=== PATIENT | female | born 1930 | race Caucasian/White ===

== ENCOUNTER 2016-07-15 23:54 | Inpatient (IN) | payer MEDICARE, OTHER ==
[~2016-07-15] VITALS: Ht 175.3 cm; Wt 68.9 kg
[2016-07-16] MEDS ORDERED: ACETAMINOPHEN325 MG PO (00:29)
[2016-07-16] MEDS ORDERED: ATIVAN0.5 MG PO (00:32)
[2016-07-16] MEDS ORDERED: FEMARA2.5 MG PO (00:33)
[2016-07-16] MEDS ORDERED: FUROSEMIDE20 MG PO (00:34)
[2016-07-16] MEDS ORDERED: LEVAQUIN500 MG PO (00:35)
[2016-07-16] MEDS ORDERED: ALDACTONE25 MG PO (00:36)
[2016-07-16] MEDS ORDERED: TRAZODONE HCL50 MG PO (00:38)
[2016-07-16] MEDS ORDERED: PROBIOTIC1 EAC1 PO (00:39)
[2016-07-16] MEDS ORDERED: K-DUR20 MEQ PO (00:41)
[2016-07-16] MEDS ORDERED: PROTONIX FOR OR40 MG PT (00:43)
[2016-07-16] MEDS ORDERED: METOPROLOL TART50 MG PO (00:44)
[2016-07-16] MEDS ORDERED: HYDROCODON-ACE1 EAC7 PO (00:45)
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
[2016-07-16 07:00] VITALS: BP 100/55
[2016-07-16 07:07] LABS: BASOPHILS 1.1 % (0-2); EOSINOPHILS 6.9 % (0-7); HEMATOCRIT 31.3 % (36.0-48.0); HEMOGLOBIN 10.1 g/dL (12-16); IMMATURE GRANULOCYTES 6.9 % (0-5); MCH 29.9 pg (26.0-34.0); MCHC 32.3 g/dL (31.0-37.0); MCV 92.6 fL (80.0-100.0); MEAN PLATELET VOLUME 9.9 fL (7.4-10.4); MONOCYTES 15.2 % (2-11); NEUTROPHILS 41.9 % (40-80); RBC 3.38 10x6/uL (4.00-5.40); RDW 15.4 % (11.5-14.5); WBC 5.3 10x3/uL (4.8-10.8)
[2016-07-16 07:09] LABS: PLATELET COUNT 296 10x3/uL (130-400)
[2016-07-16 07:12] LABS: ALBUMIN 2.3 g/dL (3.4-5.0); ANION GAP 10.2 mmol/L (8-16); BILIRUBIN - TOTAL 0.4 mg/dL (0.2-1.3); CALCIUM 8.9 mg/dL (8.5-10.1); CARBON DIOXIDE 29.7 mmol/L (21.0-32.0); CHOL - HDL RATIO 3.7 ratio (2.3-4.1); CREATININE - SERUM 1.2 mg/dL (0.6-1.3); LDL-HDL RATIO 2.1 ratio (1.5-3.5); POTASSIUM - SERUM 3.9 mmol/L (3.5-5.1); PROTEIN - SERUM 6.3 g/dL (6.4-8.2); THYROID STIMULATING HORMONE 3.85 uIU/mL (0.36-3.74)
--- NOTE | 2016-07-16 07:45 | NUR ---
B.) Alert and oriented to name and able to states , has no insight to place or reason for hospitalization. Incontinent of small amount of urine cleansed up then assisted to bathroom with assist time 2 in w/c, urine sample obtained. I.) Administer medications and monitor compliance. Redirected and reorient, monitor for any aggression and redirect as need. Encourage group participation. Monitor safety. R.) No am medications ordered, calm and cooperative with assessment, no evidence of reorientation, difficult to redirect to not get up out of chair unassisted. Chair alarm in place. No aggression. Safety maintained. P.) Continue plan of care.
[2016-07-16 09:27] LABS: APPEARANCE HAZY (CLEAR); BILIRUBIN NEGATIVE (NEGATIVE); COLOR YELLOW (YELLOW); GLUCOSE NEGATIVE (NEGATIVE); KETONE NEGATIVE (NEGATIVE); LEUKOCYTE ESTERASE 2+ (NEGATIVE); NITRITE NEGATIVE (NEGATIVE); PROTEIN NEGATIVE (NEGATIVE); SPECIFIC GRAVITY 1.005 (1.005-1.020); UROBILINOGEN NORMAL (NORMAL)
[2016-07-16 09:28] LABS: BACTERIA MODERATE /hpf (NONE SEEN); EPITHELIAL CELLS 0-5 /hpf (0-5); MUCUS <1+ /lpf (NONE SEEN); WHITE CELLS - URINE 25-50 /hpf (0-5)
--- NOTE | 2016-07-16 09:45 | NUR ---
Contacted patient son Roc, obtained privacy code of " suzanne", informed of vistiation days and time. Verbalized understanding.
[2016-07-16 10:43] LABS: HEMOGLOBIN A1C 5.8 % (4.8-6.0)
[2016-07-16 10:58] VITALS: BP 124/76; BMI 22.5
[2016-07-16 16:19] VITALS: Ht 175.3 cm; Wt 68.9 kg
--- NOTE | 2016-07-16 18:12 | NUR ---
Patient with anxiety AEB, scanning vision, attempting to get in and out of chair, yelling out. Prn po Ativan given.
--- NOTE | 2016-07-16 19:26 | NUR ---
RECEIVED IN DAYROOM SITTING IN DAYROOM AT TABLE WITH STAFF. CONFUSED. RESTLESS. ATTEMPTS TO STAND WITHOUT ASSIST. NO SIGNS OF AGGRESSION. NOT DISROBING. REDIRECT AND REORIENT NEEDED. CONTINUES TO BE RESTLESS. CONTINUE PLAN OF CARE
--- NOTE | 2016-07-16 19:56 | NUR ---
REFUSED PM VITALS SIGNS. BECOMING MORE RESTLESS.
[2016-07-16 20:49] VITALS: BP 134/57
--- NOTE | 2016-07-16 21:00 | NUR ---
INCREASING ANXIETY. CONFUSED. ATIVAN 0.5 MG PO GIVEN.
[2016-07-17 06:14] LABS: RAPID PLASMA REAGIN Non Reactive (Non Reactive)
[2016-07-17 08:20] LABS: VITAMIN D 25 HYDROXY 19.6 ng/mL (30.0-100.0)
[2016-07-17 08:58] VITALS: BP 139/72
[2016-07-17 09:17] LABS: FOLATE (FOLIC ACID) - SERUM 15.7 ng/mL (>3.0)
--- NOTE | 2016-07-17 13:26 | NUR ---
B.) Received this am, alert and oriented to name only, calm and cooperative with assessment. I.) Administer prescribed medications and monitor compliance. Redirect and reorient as need. Encourage group participation. Monitor safety. R.) Compliant with medications. Difficulty with redirections. No evidence of reorientation, unable to process and retain information. Safety maintained. P.) Continue plan of care.
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
--- NOTE | 2016-07-17 15:00 | NUR ---
per nurse Tania, patient sitting in soy chair crying. No distress reported. Chair alarm in place.
--- NOTE | 2016-07-17 19:20 | NUR ---
RECEIVEDE IN DAYROOM. SITTING AT TABLE WITH STAFF AND PEERS. CALM AND COOPERATIVE WITH CARE AND ASSESSMENT. NO SIGNS OF AGGRESSION. REDIRECT AND REORIENT NEEDED. RESTING IN RECLINER EYES OPEN AT THIS TIME. CONTINUE PLAN OF CARE
[2016-07-17 19:34] VITALS: BP 125/59
--- NOTE | 2016-07-17 23:12 | NUR ---
RESTLESS. CLIMBING OUT OF BED. NOTED ANXIETY. UNABLE TO REORIENT. ATIVAN 0.5 MG PO GIVEN FOR ANXIETY
[2016-07-18 07:00] VITALS: BP 115/60
--- NOTE | 2016-07-18 10:55 | NUR ---
ORIENTED TO PERSON ONLY. NO AGGRESSION NOTED. PT DENIES SI OR DEPRESSION. PT CONTINUES TO MAKE RANDOM DELUSIONAL STATEMENTS. REORIENTED NEEDED. MEDICATIONS ADMINISTERED ORDERED. MED COMPLIANT. ARNOLDO ALARM IN PLACE AND AUDIBLE. FALL PRECAUTIONS MAINTAINED. WILL CONTINUE TO MONITOR AND CONTINUE WITH PLAN OF CARE.
--- NOTE | 2016-07-18 18:42 | NUR ---
PT STOOD UP FROM W/C BEFORE STAFF COULD REACH HER AND LANDED ON BOTTOM. NO INJURY NOTED DURING ASSESSMENT. DENIES PAIN OR DISCOMFORT. DOCTOR AND FAMILY NOTIFIED. ALARMS SOUNDED ON BOTH BREAKAWAY BELT AND ARNOLDO PAD.
[2016-07-18 20:58] VITALS: BP 144/77
--- NOTE | 2016-07-18 21:15 | NUR ---
B) Recieved patient in the nurses station, alert and oriented to self, very confused, restless at times, I) Administered perscribed medications crushed in orange serbert, monitored for falls and safety, neurochecks within normal limits, R) Medication compliant after several attempts, P) Continue plan of care, continue to monitor.
[2016-07-19 09:47] VITALS: BP 134/74
--- NOTE | 2016-07-19 10:17 | NUR ---
B) PATIENT IS AWAKE AND ALERT, SHE IS CONFUSED, BUT SHE IS PLEASANT AND TALKATIVE. SHE HAS NOT SHOWN AGGRESSION THIS AM. SHE NEEDS ASSIST TO TRANSFER BY STAFF. I) PROVIDE PRESCRIBED MEDS, REDIRECT NEEDED. R) PROVIDE PRESCRIBED MEDS, GIVE PROMPTS TO ASSIST WITH REMEMBERING. P) CONTINUE PLAN OD CARE.
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
--- NOTE | 2016-07-19 14:43 | PN ---
PATIENT:MIKA BONNER MEDICAL RECORD: [id number] LOCATION:[facility] ADMISSION DATE: 07/15/16 PROGRESS NOTE DATE OF SERVICE: 07/17/2016 SUBJECTIVE: The patient's case was discussed with staff. She has no new complaint. OBJECTIVE: The patient denies intent to harm herself or others. She is extremely confused and impaired cognitively. ASSESSMENT: No change in diagnoses. PLAN: Current medicines have been reviewed and will be maintained. Long-term prognosis is guarded. TRANSINT:[id number] Voice Confirmation ID: [id number] DOCUMENT ID: [id number] SAHIL MCKEON MD at 1443 CC: [id number] DICTATION DATE: 07/17/16 1407 COLLEGE PHYSICS INSTRUCTOR: 07/17/16 1537 ADM IN [place] [address] [place] [address]
--- NOTE | 2016-07-19 14:43 | PN ---
PATIENT:MIKA BONNER MEDICAL RECORD: [id number] LOCATION:[facility] ADMISSION DATE: 07/15/16 PROGRESS NOTE DATE OF SERVICE: 07/18/2016 Psychiatric Progress Note SUBJECTIVE: The patient's case was discussed with staff. She has no new complaint. OBJECTIVE: The patient is in good behavioral control with very poor insight about her situation. She is quite confused at times, but unwilling to acknowledge that. She did require a p.r.n. medication last night because of agitated behavior. ASSESSMENT: Senile dementia of the Alzheimer type with behavioral disturbances. PLAN: The patient will be given Trilafon at a dose of 2 mg at bedtime to assist with thought disorganization. On at least a temporary basis, I am also going to give her Xanax 0.5 mg at bedtime to assist with sleep consolidation. I will also start her on Namenda at a dose of 2.5 mg twice daily for cognitive improvement. In addition to this, her trazodone will be discontinued since it has not been effective up to this point. Her long-term prognosis is guarded. If I can achieve reasonable certainty that she is not acutely aggressive and she is sleeping a little better and more behaviorally unmanageable, I will consider discharging her. TRANSINT:[id number] Voice Confirmation ID: [id number] DOCUMENT ID: [id number] SAHIL MCKEON MD at 1443 CC: [id number] DICTATION DATE: 07/18/16 1328 RIGGING LOFT MECHANIC: 07/18/16 2118 ADM IN [place] [address] [place] [address]
--- NOTE | 2016-07-19 15:25 | NUR ---
PATIENT IS NOT TEARFUL RIGHT NOW, BUT SHE IS CONFUSED AND SHE IS STILL TALKING ABOUT LEAVING.
--- NOTE | 2016-07-19 16:00 | NUR ---
PATIENT'S SPOUSE CAME TO VISIT AND THEN PATIENT SAID SHE HAD TO GO TO THE BATHROOM, BIACA TOOK HER TO THE BATHROOM AND PATIENT SAID "I DON'T NEED TO GO, I JUST WANTED HIM TO LEAVE". PATIENT IS LESS ANXIOUS. SHE IS NOT TRYING TO LEAVE AT THE MOMENT.
[2016-07-19 19:54] VITALS: BP 132/63
--- NOTE | 2016-07-20 02:20 | NUR ---
B) Recieved patient in the day room, alert and oriented to self, calm and cooperatice until transfer to her bed the combative and anxious, I) Administered perscribed medications crushed in orange serbert, PRN Ativan 0.5 mg IM and Haldol 2 mg IM given for anxiety at 20:56, R) Medication compliant, transfered to soy chair and placed in hallway for monitoring, resting now quietly asleep, P) Continue plan of care.
--- NOTE | 2016-07-20 07:21 | NUR ---
B) PATIENT LAYING IN THE HALLWAY IN A GINA CHAIR, SHE IS CONFUSED, SHE DOES NOT KNOW HER NAME OR WHERE SHE IS LOCATED, SHE IS TALKING NONSENSICAL AND SHE KEEPS KICKING OFF HER BLANKET. PATIENT IS STILL SLEEPY. I) PROVIDE PRESCRIBED MEDS. R) PATIENT IS COMPLIANT WITH MEDS. P) CONTINUE PLAN OF CARE.
--- NOTE | 2016-07-20 07:56 | NUR ---
PATIENT TAKEN IN FOR SHOWER. WASHED HER HAIR, CLEANSED HER BODY AND CHANGED HER INTO CLEAN CLOTHES. PATIENT IS STILL SLEEPY.
[2016-07-20 10:15] VITALS: BP 102/60
--- NOTE | 2016-07-20 12:56 | NUR ---
Nutrition Follow Up: Chart reviewed. Pt is eating 87% meal avg on a regular mechanical soft diet. +BM 07/19/16. Labs reviewed. Meds noted including Lasix, Vit D. Pt with good po intake at this time. Rec continue current diet. RD following.
--- NOTE | 2016-07-20 18:35 | NUR ---
PATIENT FELL IN DAY ROOM. PATIENT SAT UP, CHAIR FLIPPED PATIENT UP AND SHE FELL TO THE FLOOR. SHE HIT THE LEFT BACK SIDE OF HER HEAD. THERE IS A GOOSE EGG, NO LACERATION. VS T 98, BP 142/81, P 84, R 18, SPO2 100%, NEURO CHECKS STARTED, EYES ARE EQUAL. PATIENT WAS CONFUSED AND LETHARGIC BEFORE HER FALL AND REMAINS UNCHANGED AFTER FALL.
--- NOTE | 2016-07-20 18:40 | NUR ---
CALLED PATIENTS FAMILY ANGEL BONNER TO LET HIM KNOW SHE FELL, THERE IS A GOOSE EGG ON THE BACK OF LEFT SIDE OF HER HEAD. PAGED DR. CANDELARIO TO LET HIM KNOW ABOUT THE FALL.
[2016-07-20 19:30] VITALS: BP 142/81
--- NOTE | 2016-07-21 03:47 | NUR ---
Patient in dayroom in recliner. Oriented to self only. Scab on forehead, patient is trying to scratch off. Patient redirected, reoriented. Patient compliant with medication, non-combative, and non aggressive. continue to monitor
[2016-07-21 11:23] VITALS: BP 124/61
--- NOTE | 2016-07-21 16:55 | NUR ---
ORIENTED TO SELF ONLY,VERY CONFUSED.ANSWERS TO QUESTIONS HAVE NOTHING TO DO WITH QUESTION ASKED.COMPLIANT WITH MEDS.NO COMBATIVE BEHAVIOR OBSERVED BUT WAS OBSERVED CRYING AND ANGERLY TALKING ABOUT HER DADDY AND SHE WANTED TO GO WITH HIM.HALDOL 2MG IM TO RT HIP GIVEN PER ORDERS.WILL CONTINUE WITH PLAN OF CARE,MONITOR FOR CHANGES AND SAFETY.
[2016-07-21 19:30] VITALS: BP 125/64
--- NOTE | 2016-07-21 22:53 | NUR ---
Patient in dayroom in recliner, watching t.v. She is oriented to name only. Patient is compliant with medication, non-combative, pleasant and smiling. Bailey alarm activated, slip socks on. Continue to monitor, continue plan of care.
[2016-07-22 09:27] VITALS: BP 100/57
--- NOTE | 2016-07-22 14:43 | NUR ---
ORIENTED TO SELF ONLY.ANSWERS HAVE NOTHING TO DO WITH QUESTIONS ASKD.NO AGGRESSION OBSERVED.WILL CONTINUE WITH PLAN OF CARE.MONITOR FOR CHANGES AND SAFETY.
--- NOTE | 2016-07-22 18:53 | PN ---
PATIENT:MIKA BONNER MEDICAL RECORD: [id number] LOCATION:[facility] ADMISSION DATE: 07/15/16 PROGRESS NOTE DATE OF SERVICE: 07/22/2016 SUBJECTIVE: No new verbal complaint. OBJECTIVE: The patient has not been combative, but yesterday afternoon did become agitated and labile and required p.r.n. Subsequent to this, she calmed considerably and did sleep well last night. On exam, mood is anxious, affect is shallow. Speech is tangential. Content of thought is negative for suicidal ideation. The patient continues to have delusional ideation about her parents. Sensorium shows no change. ASSESSMENT: No change in diagnosis. PLAN: 1. Maintain current medications. 2. Continue supportive therapy. TRANSINT:[id number] Voice Confirmation ID: [id number] DOCUMENT ID: [id number] JT RASHID III, MD at 1853 CC: [id number] DICTATION DATE: 07/22/16 0807 ROLLER INSPECTOR: 07/22/16 1059 ADM IN [place] [address] [place] [address]
--- NOTE | 2016-07-22 18:53 | PN ---
PATIENT:MIKA BONNER MEDICAL RECORD: [id number] LOCATION:[facility] ADMISSION DATE: 07/15/16 PROGRESS NOTE DATE OF SERVICE: 07/20/2016 SUBJECTIVE: No coherent complaint. OBJECTIVE: As of yesterday, the patient had been agitated with combativeness and striking at staff members. She did receive p.r.n. of Haldol and Ativan yesterday. This morning, she is more drowsy. She does arouse when approached by the examiner. Mood remains somewhat irritable, but affect is constricted. Speech is slow in rate. Content of thought has remained positive for nonspecific paranoid ideation. The patient is oriented only to person with global memory impairment. ASSESSMENT: No change in diagnosis. PLAN: 1. We will maintain current medications. 2. Continue supportive therapy. TRANSINT:[id number] Voice Confirmation ID: [id number] DOCUMENT ID: [id number] JT RASHID III, MD at 1853 CC: [id number] DICTATION DATE: 07/20/16 1048 ADVERTISING LAYOUT WORKER: 07/20/162008 ADM IN [facility] [address] [place] [id number]
[2016-07-22 19:20] VITALS: BP 103/56
--- NOTE | 2016-07-22 19:38 | NUR ---
RECEIVED IN DAYROOM. LAYING IN RECLINING CHAIR WITH EYES CLOSED. RESPONDS TO TOUCH. CALM AND COOPERATIVE WITH CARE AND ASSESSMENT. NO SIGNS OF AGGRESSION. REDIRECT AND REORIENT NEEDED. CONTINUES TO REST EYES CLOSED. CONTINUE PLAN OF CARE
[2016-07-23 07:00] VITALS: BP 114/65
--- NOTE | 2016-07-23 14:43 | PN ---
PATIENT:MIKA BONNER MEDICAL RECORD: [id number] LOCATION:[facility] ADMISSION DATE: 07/15/16 PROGRESS NOTE DATE OF SERVICE: 07/19/2016 Psychiatric Progress Note SUBJECTIVE: The patient's case was discussed with staff. She has no new complaint. OBJECTIVE: The patient is in good behavioral control with limited insight about her condition. She tolerates her medicines well. ASSESSMENT: No change in diagnoses. PLAN: The patient will be started on Klonopin to assist with her agitation. Her long-term prognosis is guarded. TRANSINT:[id number] Voice Confirmation ID: [id number] DOCUMENT ID: [id number] SAHIL MCKEON MD at 1443 CC: [id number] DICTATION DATE: 07/19/16 1501 DIRECTOR MANUFACTURING ENGINEERING: 07/20/[address] [facility] [address] [place] [id number]
--- NOTE | 2016-07-23 15:32 | NUR ---
Alert and oriented to self only. calm and cooperative with am assessment. Administer medications and monitor compliance. Redirect and reorient. Monitor for any escalation of behavior. Monitor safety. Compliant with medications, no aggression. Has difficulty understanding conversation and directions, but dos redirect without any agitation. Pleasant and cooperative with care. Chair alarm in place. Safety maintained. Continue plan of care.
--- NOTE | 2016-07-23 19:35 | NUR ---
RECEIVED IN DAYROOM. SITTING IN RECLINGING CHAIR WITH PEERS AT HER SIDE. NO SIGNS OF AGGRESSION. CALM AND COOPERATIVE WITH CARE AND ASSESSMENTS. NO SIGNS OF AGGRESSION. REDIRECT AND REORIENT NEEDED. REMAINS CALM AND COOPERATIVE. CONTINUE PLAN OF CARE
[2016-07-23 20:00] VITALS: BP 119/59
[2016-07-24 10:54] VITALS: BP 107/55
--- NOTE | 2016-07-24 11:46 | NUR ---
Received this am alert and oriented to self only. Administer prescrived medications, redirect and reorient. Assist with meals. Monitor safety. Compliant with medications, calm and cooperative with care without any aggression. No evidence of reorientation. Assisted with breakfast. Chair alarm in place, safety maintained. Continue plan of care.
--- NOTE | 2016-07-24 14:00 | PN ---
PATIENT:MIKA BONNER MEDICAL RECORD: [id number] LOCATION:[facility] ADMISSION DATE: 07/15/16 PROGRESS NOTE DATE OF SERVICE: 07/23/2016 SUBJECTIVE: The patient's case was discussed with staff. She has no new complaint. OBJECTIVE: The patient has been in good behavioral control. She has not been combative or aggressive. ASSESSMENT: No change in diagnoses. PLAN: Brief supportive and educational interventions were made. The patient is going to have her Namenda increased slightly to address her cognitive impairment and I am going to decrease her Klonopin slightly since I think she is a little too sedated. I do anticipate she can be transitioned out of the hospital soon if this level of improvement is maintained. TRANSINT:[id number] Voice Confirmation ID: [id number] DOCUMENT ID: [id number] SAHIL MCKEON MD at 1400 CC: [id number] DICTATION DATE: 07/23/16 1516 EVENT SPECIALIST PRODUCT DEMONSTRATOR: 07/24/16 0053 ADM IN [place] [address] [place] [address]
[2016-07-24] MEDS ORDERED: FERREX 150 PLUS1 CAP PO (14:16)
[2016-07-24] MEDS ORDERED: Vitamin D PO (14:17)
[2016-07-24] MEDS ORDERED: NAMENDA5 MG PO (14:17)
[2016-07-24] MEDS ORDERED: KLONOPIN0.5 MG PO (14:17)
[2016-07-24] MEDS ORDERED: PERPHENAZINE2 MG PO (14:17)
[2016-07-24 19:11] VITALS: BP 117/58
--- NOTE | 2016-07-24 19:28 | NUR ---
RECEIVED IN DAYROOM. LAYING IN RECLINER WITH EYES OPEN. CONFUSED. CALM AND COOPERATIVE WITH CARE AND ASSESSMENTS. NO SIGNS OF AGGRESSION. CONTINUES TO REST QUIETLY IN RECLINER WITH EYES CLOSED. CONTINUE PLAN OF CARE
--- NOTE | 2016-07-25 08:36 | NUR ---
PT WILL DISCHARGE TODAY BACK TO [facility]. NO AGGRESSION NOTED. CALM COOPERATIVE WITH CARE. MED COMPLIANT. VSS. BELONGINGS AND DISCHARGE PAPERWORK SENT BACK WITH [facility] DIRECTOR OF FACILITY. FAMILY NOTIFIED OF DISCHARGE PLANS TODAY.
[2016-07-25 08:39] VITALS: BP 140/86
--- NOTE | 2016-07-25 14:59 | PN ---
PATIENT:MIKA BONNER MEDICAL RECORD: [id number] LOCATION:[facility] ADMISSION DATE: 07/15/16 PROGRESS NOTE DATE OF SERVICE: 07/24/2016 SUBJECTIVE: The patient's case was discussed with staff. She has no new complaint. OBJECTIVE: The patient denies intent to harm herself or others. She generally tolerates her medicines well. Eye contact is fair. Concentration is fair. ASSESSMENT: No change in diagnoses. PLAN: Current medicines have been reviewed and will be maintained. Long-term prognosis is guarded. I anticipate she can reasonably be transitioned out of the hospital soon if this level of improvement is maintained. TRANSINT:[id number] Voice Confirmation ID: [id number] DOCUMENT ID: [id number] SAHIL MCKEON MD at 1459 CC: [id number] DICTATION DATE: 07/24/16 1419 BOLT LOADER: 07/24/162101 DIS IN 07/25/[address] [place] [address] [place] [address]
--- NOTE | 2016-07-26 13:41 | PN ---
PATIENT:MIKA BONNER MEDICAL RECORD: [id number] LOCATION:[facility] [address] ADMISSION DATE: 07/15/16 PROGRESS NOTE DATE OF SERVICE: 07/25/2016 SUBJECTIVE: The patient's case was discussed with staff. She has no new complaint. OBJECTIVE: The patient is quite confused and disoriented at times, but she is not acutely dangerous or aggressive. ASSESSMENT: No change in diagnoses. PLAN: The patient will be transitioned out of the hospital today. Her long-term prognosis is guarded. TRANSINT:[id number] Voice Confirmation ID: [id number] DOCUMENT ID: [id number] SAHIL MCKEON MD at 1341 CC: [id number] DICTATION DATE: 07/25/16 1506 ENAMEL BURNER: 07/25/16 2342 DIS IN 07/25/16 [facility] [address] [place] [address]
--- NOTE | 2016-07-28 11:17 | DS ---
PATIENT:MIKA BONNER :[birth year] MEDICAL RECORD: [id number] DISCHARGE SUMMARY ADMISSION DATE: 07/15/16 DISCHARGE DATE: 07/25/16 PSYCHIATRIC DISCHARGE SUMMARY IDENTIFYING DATA: The patient is 85 years old and she was admitted to the hospital on a voluntary basis. CHIEF COMPLAINT: None. HISTORY OF PRESENT ILLNESS: The patient is a very nice lady who is quite confused. She lives in a local [place] [facility]. She apparently has become increasingly confused and agitated there and indeed she has even become aggressive with her caregivers. She has no recollection of these events and is distressed to hear that she was causing a problem at the [place] [facility] [place]. PAST MEDICAL HISTORY: Significant for hypertension, pancreatitis, gallbladder disease, hypokalemia and hypoalbuminemia. PAST PSYCHIATRIC HISTORY: Significant for dementia. HOSPITAL COURSE: The patient was admitted to the hospital and fully evaluated from both a medical, psychological, and social standpoint. She was treated with both mood stabilizing and memory enhancing medications. She had no aggressive thoughts or behaviors and was subsequently transitioned back to the [place] [facility]. This occurred after multiple medication adjustments. DISCHARGE DIAGNOSES: AXIS I: Senile dementia of the Alzheimer's type with behavioral disturbances. AXIS II: None. AXIS III: Hypertension, pancreatitis, hypokalemia. AXIS IV: Moderate stressors. AXIS V: Global assessment of functioning is 30. PLAN: At the time of discharge, the patient was in good behavioral control with limited insight about her condition. She was not representing an acute risk to herself or others. Her long-term prognosis is guarded. TRANSINT:[id number] Voice Confirmation ID: [id number] DOCUMENT ID: [id number] SAHIL MCKEON MD at 1117 CC: [id number] DICTATION DATE: 07/27/16 1157 MANAGER PAID: 07/28/16 0522 DIS IN 07/25/[address] [place] [address] [place] [address]
== END 2016-07-25 10:06 | DRG 56 ==
LOC: D.PSYCH 23:54
PROVIDERS: Family Medicine; ADMIT Psychiatry & Neurology Psychiatry
DX: G30.1 Alzheimer's disease with late onset (principal); K85.90 Acute pancreatitis without necrosis or infection, unspecified; F02.81 Dementia in other diseases classified elsewhere, unspecified severity, with behavioral disturbance; I10 Essential (primary) hypertension; E87.6 Hypokalemia; D64.9 Anemia, unspecified; E11.9 Type 2 diabetes mellitus without complications; K21.9 Gastro-esophageal reflux disease without esophagitis; R26.89 Other abnormalities of gait and mobility